=== PATIENT | female | born 1970 | race Caucasian/White ===

== ENCOUNTER 2018-09-26 06:38 | Day surgery (SDC) | payer BC ==
[2018-09-25 09:35] VITALS: BMI 24.1
[~2018-09-26 06:38] MED LIST: DEXAMETHASONE SOD PHOSPHATE 10 MG/ML 1 ML VIAL IV ONE; HEPARIN SODIUM,PORCINE 5,000 UNIT/ML 1 ML VIAL SQ ONE; HYDROmorphone 0.5 MG/0.5 ML SYRINGE IVP PRN; LACTATED RINGERS 1,000 ML IV SCH; MIDAZOLAM (PF) 2 MG/2 ML VIAL IV PRN; ONDANSETRON 4 MG/2 ML VIAL IVP ONE; SCOPOLAMINE 1.5MG/72HR PATCH TRANSDERM ONE; ceFAZolin IN SWFI 2 GM/20 ML SYRINGE IVP ONE
[2018-09-26 06:54] VITALS: TEMP 97.8
[2018-09-26] MEDS ORDERED: LACTATED RINGERS 1,000 ML IV ONE (07:10)
[2018-09-26] MEDS ORDERED: LIDOCAINE 1% 20 ML VIAL (10MG/ML) FOR IV START INTRADERMA ONE (07:11)
--- NOTE | 2018-09-26 07:42 | P.GSHP ---
History of Present Illness H&P Date: 09/26/18 Chief Complaint: Breast cancer Patient today for Port-A-Cath removal. Patient recently had bilateral mastectomy for recurrent breast cancer. Patient is no longer receiving chemotherapy. Feeling well at this time. Past Medical History Past Medical History: Cancer Additional Past Medical History / Comment(s): 2 rounds of left breat cancer, last chemo November 2016 History of Any Multi-Drug Resistant Organisms: MRSA Date of last positivie culture/infection: 2008? MDRO Source:: leg Past Surgical History: Breast Surgery Additional Past Surgical History / Comment(s): left breast lumpectomy, libby mastectomy, jaw reconstruction, libby salping/oopherectomy, port a cath x2 Past Anesthesia/Blood Transfusion Reactions: Postoperative Nausea & Vomiting ( PONV) Smoking Status: Never smoker - Past Family History Father Family Medical History: Cancer Brother(s) Family Medical History: Cancer Medications and Allergies Home Medications Medication Instructions Recorded Confirmed Type Cholecalciferol [Vitamin D3] 5,000 unit PO DAILY 09/25/18 09/25/18 History Fluticasone Nasal Ewen [Flonase 1 spray EA NOSTRIL DAILY 09/25/18 09/25/18 History Nasal Ewen] L.acidoph,Paracasei, B.lactis 1 each PO DAILY 09/25/18 09/25/18 History [Probiotic] Loratadine [Claritin] 10 mg PO DAILY 09/25/18 09/25/18 History amLODIPine [Norvasc] 2.5 mg PO DAILY 09/25/18 09/25/18 History Allergies Allergy/AdvReac Type Severity Reaction Status Date / Time No Known Allergies Allergy Verified 09/25/18 09:26 Surgical - Exam Vital Signs Temp Pulse Resp BP Pulse Ox 97.8 F 91 18 161/86 99 09/26/18 06:53 09/26/18 06:53 09/26/18 06:53 09/26/18 06:53 09/26/18 06:53 Physical exam: General: Well-developed, well-nourished Chest: Right-sided Port-A-Cath noted HEENT: Normocephalic, sclerae nonicteric Abdomen: Nontender, nondistended Extremities: No edema Neuro: Alert and oriented Assessment and Plan (1) Breast cancer Narrative/Plan: Will proceed with Port-A-Cath removal at this time Current Visit: Yes Status: Acute Code(s): C50.919 - MALIGNANT NEOPLASM OF UNSP SITE OF UNSPECIFIED FEMALE BREAST SNOMED Code(s): 272026063
[2018-09-26] MEDS ORDERED: fentaNYL (PF) 50 MCG/ML 2 ML AMP ONE (07:54)
[2018-09-26] MEDS ORDERED: PROPOFOL 10 MG/ML 20 ML VIAL IV ONE (07:54)
[2018-09-26] MEDS ORDERED: MIDAZOLAM 2 MG/2 ML VIAL ONE (07:54)
[2018-09-26] MEDS ORDERED: LIDOCAINE 1% INJ 10MG/ML (20 ML MDV) ONE (07:54)
[2018-09-26] MEDS ORDERED: LIDOCAINE (PF) 10 MG/ML 5ML AMP SQ ONE ×2 (07:56)
[2018-09-26] MEDS ORDERED: NALOXONE 0.4 MG/ML 1 ML VIAL IV PRN (08:37)
[2018-09-26] MEDS ORDERED: HYDROcodone/APAP 5-325MG 1 EACH TAB PO PRN (08:37)
--- NOTE | 2018-09-26 08:38 | P.OP ---
Date of Procedure: 09/26/18 Procedure(s) Performed: PREOPERATIVE DIAGNOSIS: Breast cancer POSTOPERATIVE DIAGNOSIS: Same PROCEDURE: Port-A-Cath removal SURGEON: Alexa EBL: Minimal ANESTHESIA: Sedation COMPLICATIONS: None OPERATIVE PROCEDURE: Patient was placed in the supine position. The patient was sedated per anesthesia that time. The chest was prepped and draped in the usual sterile fashion. The skin was localized with Marcaine solution. The previous incision was re-incised using a scalpel. The port was easily excised using accommodation of blunt dissection sharp dissection and electrocautery. The subcutaneous tissues were reapproximated using 3-0 Vicryl sutures. The skin was reapproximated using 4-0 Monocryl sutures. Steri-Strips and sterile dressings were then applied. DISPOSITION: Stable to recovery room
[2018-09-26 08:39] VITALS: RESP 16
[2018-09-26] MEDS ORDERED: ACETAMINOPHEN TAB 325 MG TAB PO ONE (09:45)
[2018-09-26 09:46] VITALS: BP 142/87; PULSE 86
== END 2018-09-26 10:13 | disposition home or self-care (01) ==
LOC: OR 06:38
PROVIDERS: ATTEND Surgery
DX: C50.919 Malignant neoplasm of unspecified site of unspecified female breast (principal); Z90.13 Acquired absence of bilateral breasts and nipples; Z92.21 Personal history of antineoplastic chemotherapy; Z86.14 Personal history of Methicillin resistant Staphylococcus aureus infection; Z79.899 Other long term (current) drug therapy
CPT/HCPCS: 36590; J2250; J1644; J1100; J2405; J2001 ×2; J3010; J2704

== ENCOUNTER → 2018-11-28 | Outpatient (CLI) | payer BC ==
--- NOTE | 2018-11-28 16:21 | XR ---
EXAMINATION TYPE: XR chest 2V DATE OF EXAM: 11/28/2018 COMPARISON: NONE HISTORY: Breast cancer. TECHNIQUE: Frontal and lateral views of the chest are obtained. FINDINGS: Surgical clips right hilar region identified. Additional surgical clips project over the le ft axilla. Absent bilateral breast shadows are noted. There is no focal air space opacity, pleural ef fusion, or pneumothorax seen. The cardiac silhouette size is within normal limits. The osseous str uctures are intact. IMPRESSION: No acute cardiopulmonary process.
== END | disposition home or self-care (01) ==
LOC: RADXRMAIN 15:52
PROVIDERS: ATTEND Internal Medicine Hematology & Oncology
DX: C50.912 Malignant neoplasm of unspecified site of left female breast (principal); I10 Essential (primary) hypertension; Z14.8 Genetic carrier of other disease
CPT/HCPCS: 71046

== ENCOUNTER → 2023-06-19 | Outpatient (CLI) | payer BC ==
--- NOTE | 2023-06-19 09:14 | US ---
EXAMINATION TYPE: US abdomen limited DATE OF EXAM: 06/19/2023 COMPARISON: NONE CLINICAL INDICATION: Female, 53 years old with history of I10 ESSENTIAL (PRIMARY) HYPERTENSION TECHNIQUE: Multiple sonographic images of the right upper quadrant are obtained. FINDINGS: EXAM MEASUREMENTS: Liver Length: 13.6 cm Gallbladder Wall: 0.1 cm CBD: 0.3 cm Right Kidney: 10.2 x 4.9 x 3.4 cm [employer] NOTES: Exam slightly limited by bowel gas Pancreas: Body and tail obscured by bowel gas shadowing. Liver: Mildly increased echogenicity. No focal lesion seen. Gallbladder: wnl Evidence for sonographic Mccartney's sign: No CBD: wnl Right Kidney: No hydronephrosis or masses seen, column of Mc IMPRESSION: 1. Mild hepatic steatosis. 2. No gallstones or biliary ductal dilatation.
== END | disposition home or self-care (01) ==
LOC: RADUSWWP 07:39
PROVIDERS: ATTEND Internal Medicine Hematology & Oncology
DX: C50.912 Malignant neoplasm of unspecified site of left female breast (principal); I10 Essential (primary) hypertension; K76.0 Fatty (change of) liver, not elsewhere classified; Z14.8 Genetic carrier of other disease
CPT/HCPCS: 76705

== ENCOUNTER → 2023-12-14 | Outpatient (CLI) | payer BC ==
[2023-12-14 22:28] LABS: Basophils # (A) 0.03 X 10*3/uL (0.00-0.10); Basophils % (A) 0.2 %; Eosinophils # (A) 0 X 10*3/uL (0.04-0.35); Eosinophils % (A) 0 %; Lymphocytes # (A) 1.92 X 10*3/uL (0.90-5.00); Lymphocytes % (A) 13.6 %; MCH 30.7 pg (27.0-32.0); MCHC 32.5 g/dL (32.0-37.0); MCV 94.6 FL (80.0-97.0); Mean Platelet Volume 10.9 FL (9.5-12.2); Monocytes # (A) 0.47 X 10*3/uL (0.20-1.00); Monocytes % (A) 3.3 %; NRBC Per 100 WBC 0 X 10*3/uL (0.00-0.01); Neutrophils # (A) 11.66 X 10*3/uL (1.80-7.70); Neutrophils % (A) 82.5 %; Platelet Count 329 X 10*3/uL (140-440); RBC 4.23 X 10*6/uL (4.10-5.20); RDW 13.3 % (11.5-14.5); WBC 14.13 X 10*3/uL (4.50-10.00)
[2023-12-14 22:43] LABS: C Reactive Protein <0.30 mg/dL (0.00-0.80); Erythrocyte Sedimentation Rate 6 mm/Hr (0-30)
== END | disposition home or self-care (01) ==
LOC: LABWHC1 10:14
PROVIDERS: ATTEND Family Medicine
DX: R52 Pain, unspecified (principal)
CPT/HCPCS: 36415; 85025; 85652; 86038; 86140; 86618

== ENCOUNTER → 2024-06-24 | Outpatient (CLI) | payer BC ==
[2024-06-24 15:54] LABS: HCT 42.9 % (37.2-46.3); HGB 14.2 g/dL (12.0-15.0); MCH 30.3 pg (27.0-32.0); MCHC 33.1 g/dL (32.0-37.0); MCV 91.7 FL (80.0-97.0); Mean Platelet Volume 11.1 FL (9.5-12.2); NRBC Per 100 WBC 0 X 10*3/uL (0.00-0.01); Platelet Count 259 X 10*3/uL (140-440); RBC 4.68 X 10*6/uL (4.10-5.20); RDW 12.7 % (11.5-14.5); WBC 6.25 X 10*3/uL (4.50-10.00)
[2024-06-24 16:34] LABS: Blood Urea Nitrogen 12.6 mg/dL (9.0-27.0); Calcium 9.6 mg/dL (8.7-10.3); Carbon Dioxide 24.7 mmol/L (21.6-31.8); Chloride 105 mmol/L (96-109); Chol/HDL Ratio 4.66 Ratio; Glucose 105 mg/dL (70-110); LDL Cholesterol,Calculated 193.3 mg/dL (0.0-131.0); Potassium 4.2 mmol/L (3.5-5.5); Sodium 139 mmol/L (135-145)
[2024-06-24 19:05] LABS: Appearance,Urine Clear (Clear); Bilirubin,Urine Negative (Negative); Blood,Urine Trace (Negative); Color,Urine Yellow (Yellow); Ketones,Urine Negative (Negative); Nitrite,Urine Negative (Negative); PH, Urine 7.5; Specific Gravity,Urine 1.017 (1.001-1.030); Urobilinogen,Urine 0.2 E.U./DL
[2024-06-24 19:17] LABS: Bacteria,Urine 1+ (None Seen)
== END | disposition home or self-care (01) ==
LOC: LABWHC1 08:40
PROVIDERS: ATTEND Internal Medicine
DX: I10 Essential (primary) hypertension (principal); Z82.49 Family history of ischemic heart disease and other diseases of the circulatory system; Z83.2 Family history of diseases of the blood and blood-forming organs and certain disorders involving the immune mechanism
CPT/HCPCS: 36415; 80048; 80061; 81001; 84443; 85027

== ENCOUNTER → 2025-02-02 | Outpatient (CLI) | payer BC ==
[2025-02-02 16:06] LABS: Cholesterol 201.00 mg/dL (0.00-200.00); HDL Cholesterol 60.20 mg/dL (40.00-60.00); LDL Cholesterol,Calculated 103.6 mg/dL (0.0-131.0); Triglycerides 186.00 mg/dL (0.00-149.00); VLDL Calculation 37.20 mg/dL (5.00-40.00)
== END | disposition home or self-care (01) ==
LOC: LABWHC1 07:32
PROVIDERS: ATTEND Family Medicine
DX: E78.5 Hyperlipidemia, unspecified (principal); R73.01 Impaired fasting glucose
CPT/HCPCS: 36415; 80061; 83036